=== PATIENT | male | born 1995 | race Caucasian/White ===

== ENCOUNTER 2017-01-06 23:13 | Emergency (ER) | payer SELFPAY ==
[~2017-01-06] VITALS: Ht 167.6 cm; Wt 330.0 kg
[2017-01-07 02:51] VITALS: BP 142/78
== END 2017-01-07 03:00 | disposition home or self-care (01) ==
LOC: ER 01-07 02:00
DX: F41.9 Anxiety disorder, unspecified (principal); F12.10 Cannabis abuse, uncomplicated
CPT/HCPCS: 71010; 93005; 99284; Z7610